=== PATIENT | male | born 1930 | race Caucasian/White ===

== ENCOUNTER 2017-01-27 07:43 | Day surgery (SDC) | payer MEDICARE, BC ==
--- NOTE | 2017-01-21 19:01 | HP ---
PREOPERATIVE HISTORY AND PHYSICAL: DATE OF SURGERY/ADMISSION: 01/27/17 AGE: 86. ATTENDING SURGEON: Hina Hartmann MD. PROCEDURE: Left wrist carpal tunnel release. DATE OF OFFICE VISIT/ENCOUNTER: 01/21/17 PRIMARY CARE PHYSICIAN: Dr. Macias. PRIMER ASSEMBLER: Dr. Redmond. CHIEF COMPLAINT: Numbness and tingling, left hand. HISTORY OF PRESENT ILLNESS: This is an 86-year-old male who complains of numbness and tingling in b ilateral hands, worst on the left than on the right. He is left- handed. He was diagnosed by his [facility] physician with a vitamin B12 deficiency and he has been taking medication for that but h e continues to have numbness and tingling in his hands. He had a nerve conduction study EMG done, w hich showed bilateral ulnar neuropathy and left carpal tunnel syndrome. He is really only bothered by the left carpal tunnel syndrome symptoms. He says that he gets numbness and tingling in the midd le and index fingers in the left hand and feels weakness in his hand and difficulty with fine motor movements. He is not complaining of symptoms in his small finger. After evaluation by and discussi on with Dr. Hartmann, he has elected to proceed with surgical intervention for his left carpal tunnel s yndrome. The patient is on Coumadin and we will plan on having him stay on Coumadin through the period. PAST MEDICAL HISTORY: 1. Stroke approximately 12 years ago. 2. Hypertension. 3. Hypercholesterolemia. 4. Hypothyroidism. 5. Atrial fibrillation. 6. Blind, right eye. PAST SURGICAL HISTORY: 1. Cholecystectomy. 2. Hernia repair. 3. Partial thyroidectomy. 4. Prostatectomy. 5. Bladder surgery. 6. Left ankle surgery. CURRENT MEDICATIONS: 1. Atorvastatin calcium 20 mg daily. 2. Cartia XT 240 mg daily. 3. Digoxin 125 mcg 1 tab Thursday, Thursday, Thursday. 4. Finasteride 5 mg daily. 5. Levothyroxine sodium 125 mcg daily. 6. Systane preservative free 1 drop daily for dry eyes. 7. Toprol-XL 25 mg daily. 8. Viagra 100 mg 1/2 to 1 tab daily p.r.n. 9. Vitamin B12 once every 30 days. 10. Vitamin D 1000 units 1 tablet daily. 11. Warfarin sodium 1 mg take as directed. ALLERGIES: LISINOPRIL, caused dry eye. FAMILY MEDICAL HISTORY: Stroke, his father at age 98 and cancer. His mother at age 80. SOCIAL HISTORY: The patient is retired. 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 He denies tobacco use, recreational drug use, and alcohol use. REVIEW OF SYSTEMS: General: Negative for fevers, chills, or night sweats. No known anesthesia pro blems. HEENT: Negative for headache, lightheadedness, or syncopal episodes. Integumentary: Negat mac for abrasions, lesions, or open wounds. Cardiothoracic: Positive for atrial fibrillation and h ypertension. Negative for chest pain. Pulmonary: Negative for shortness of breath with exertion, c hronic cough, or COPD. GI: Negative for nausea, vomiting, diarrhea, constipation, or GERD. : N egative for nocturia, urinary frequency, urgency, history of UTIs, or kidney problems. Musculoskele ira: Positive for current complaint. Otherwise negative. Neurological: Positive for history of s troke. Negative for history of seizure. Endocrine: Positive for hypothyroidism. Negative for diabe joslyn. Hematologic: Positive for easy bruising and bleeding secondary to Coumadin. Negative for his tory of DVT. Infectious Disease: Negative for history of MRSA, hepatitis C, or HIV. PHYSICAL EXAMINATION GENERAL: Well-developed, well-nourished 86-year-old male in no acute distress. HEENT: Normocephalic, atraumatic. The patient is blind in right eye. Left eye pupil is equal, rou nd, reactive to light and accommodation and extraocular movements are intact. NECK: Supple. No palpable lymph nodes. Throat is clear. PULMONARY: Lungs are clear to auscultation bilaterally. No wheezes, rales, or rhonchi. CARDIOVASCULAR: Regular rate and rhythm. S1, S2. No murmurs, rubs, or gallops. No edema. ABDOMEN: Positive bowel sounds. Nontender. NEUROLOGICAL: Alert and oriented x3. Cranial nerves II through XII intact. Sensation is intact to light touch. PERIPHERAL VASCULAR: 2+ radial and ulnar pulses. Negative Armin test. MUSCULOSKELETAL: On exam of his left hand, he has some mild thenar wasting and some weakness with t humb abduction. He has a positive Tinel sign over the median nerve on the left. Negative Tinel's a t the ulnar nerve. He has good motion in his fingers and sensation is intact to light touch in his small finger, but slightly decreased at the tip of the middle finger. IMPRESSION: Left carpal tunnel syndrome. PLAN: The patient is scheduled to undergo a left wrist carpal tunnel release with Dr. Hartmann on 01/12 02/28. He will return to the office 10 to 14 days postop for followup and suture removal. A prescri ption for Ultracet was e-scribed to the patient's pharmacy for postoperative pain management. We wi ll plan on having the patient stay on his regular Coumadin dosage perioperatively. ARY GUNN [id number]/[facility] #: [id number]
[~2017-01-27 07:43] MED LIST: Buffered Lidocaine 1% SYR 3ML* 3 ML/SYR SYRINGE INTRADERM ONE; Famotidine IV* 10 MG/ML 2 ML (20 mg) IV ONE
[2017-01-27] MEDS ORDERED: Famotidine IV* 10 MG/ML 2 ML (20 mg) ONE (07:50)
[2017-01-27] MEDS ORDERED: Lidocaine 1% INJ* 10 MG/ML 30 ML SDV ONE (07:52)
[2017-01-27] MEDS ORDERED: DiMENhydriNATE IV* 50 MG/ML VIAL IV PUSH PRN (08:26)
[2017-01-27] MEDS ORDERED: Acetaminophen TAB* 325 MG PO PRN (08:26)
[2017-01-27] MEDS ORDERED: Midazolam* 1 MG/ML 2 ML VIAL (2 MG) ONE (08:30)
[2017-01-27] MEDS ORDERED: fentaNYL* 50 MCG/ML 2 ML VIAL (100 MCG VIAL) ONE (08:30)
[2017-01-27] MEDS ORDERED: Ketorolac INJ* 30 MG/ML 1 ML VIAL ONE (09:02)
[2017-01-27] MEDS ORDERED: Propofol* 10 MG/ML 20 ML BTL IV PUSH ONE (09:02)
[2017-01-27] MEDS ORDERED: Lidocaine 2% PF * 5 ML VIAL ONE (09:02)
[2017-01-27 10:03] VITALS: BP 136/60
--- NOTE | 2017-01-27 21:53 | OP ---
DATE OF OPERATION: 01/27/17 [facility] DATE OF : 32 SURGEON: Hina Hartmann MD. LAP REGULATOR: ARY Culver. ANESTHESIOLOGIST: Zahraa Hernandez MD ANESTHESIA: Local MAC. PRE-OP DIAGNOSIS: Left carpal tunnel syndrome. POST-OP DIAGNOSIS: Left carpal tunnel syndrome. OPERATIVE PROCEDURE: Left carpal tunnel release. ESTIMATED BLOOD LOSS: Zero. TOURNIQUET TIME: About 8 minutes. INDICATIONS FOR PROCEDURE: is an 86-year-old man with numbness and tingling in the median nerve distribution of his left hand who presents for left carpal tunnel release. DESCRIPTION OF PROCEDURE: The patient was brought to the operating room, and was given a sedation anesthetic and a local infiltration with 10 cc of 1% plain lidocaine. The skin of his left hand and forearm was prepped and draped in the usual sterile fashion. The hand and forearm were exsanguinated and the tourniquet elevated to 250 mmHg. A longitudinal incision was made in the palm in line with the ring finger. We dissected through the subcutaneous tissue down to the transverse carpal ligament. The ligament was divided sharply with a knife and then more proximally with the scissors. The nerve was dissected free from the surrounding tissue and there was an area of moderate compression at the mid portion of the ligament. The wound was irrigated and the skin edges were reapproximated with 4-0 nylon sutures. The wound was dressed with Xeroform , 4x4, Webril, and an Yahir wrap. The patient tolerated the procedure well and was brought to the recovery room in good condition. [id number]/[facility] #: [id number] [facility]
== END 2017-01-27 10:15 | disposition home or self-care (01) ==
LOC: OREAST 07:43
PROVIDERS: ATTEND Orthopaedic Surgery
DX: G56.02 Carpal tunnel syndrome, left upper limb (principal); I48.91 Unspecified atrial fibrillation; Z79.01 Long term (current) use of anticoagulants; I10 Essential (primary) hypertension; E03.9 Hypothyroidism, unspecified; E78.00 Pure hypercholesterolemia, unspecified
CPT/HCPCS: J1885; J2001; J2250; J2704; J3010

== ENCOUNTER 2017-08-15 23:31 | Emergency (ER) | payer MEDICARE, BC ==
[2017-08-16 03:08] LABS: Hematocrit 45 % (42-52); Hemoglobin 14.8 g/dl (14.0-18.0); Mean Corpuscular HGB Conc 33 g/dl (31-36); Mean Corpuscular Hemoglobin 30 pg (27-31); Mean Corpuscular Volume 89 fL (80-94); Mean Platelet Volume 8 um3 (7.4-10.4); Red Blood Count 5.02 10^6/ul (4.0-5.4); Red Cell Distribution Width 15 % (10.5-15); White Blood Count 10.3 10^3/ul (3.5-10.8)
[2017-08-16 03:20] LABS: Albumin 4.1 g/dL (3.2-5.2); BUN/Creatinine Ratio 15.9 (8-20); Calcium 9.3 mg/dL (8.6-10.3); EGFR African American 114.6 (>60); EGFR Non-African American 89.1 (>60); Globulin 3.3 g/dL (2-4); Potassium 4.5 mmol/L (3.5-5.0); Total Bilirubin 0.7 mg/dL (0.2-1.0); Total Protein 7.4 g/dL (6.4-8.9)
[2017-08-16 05:43] LABS: Urine Bacteria Absent (Absent); Urine Bilirubin Negative (Negative); Urine Glucose Negative (Negative); Urine Nitrite Negative (Negative)
[2017-08-16] MEDS ORDERED: Cephalexin CAP* 500 MG PO ONE (06:05)
[2017-08-16 06:37] VITALS: BP 173/73
--- NOTE | 2017-08-18 08:33 | ED ---
Progress - Progress Note Progress Note: Pt's prelim urine cx reveals 50-75,000 e. coli. Pt started on kelfex. Sensitivities pending. No change at this time. Course/Dx - Diagnoses Provider Diagnoses: UTI (urinary tract infection)
== END 2017-08-16 06:49 | disposition home or self-care (01) ==
LOC: ED 23:31
DX: N39.0 Urinary tract infection, site not specified (principal)
CPT/HCPCS: 36415; 80053; 81003; 81015; 85025; 87077; 87086; 87186; 99282; A9270-GY

== ENCOUNTER 2017-08-28 09:03 | Day surgery (SDC) | payer MEDICARE, BC ==
--- NOTE | 2017-08-14 10:11 | HP ---
CC: Dr. Macias; Dr. Gavin Redmond * HISTORY AND PHYSICAL: DATE OF PLANNED ADMISSION AND SURGERY: 08/28/17 HISTORY OF PRESENT ILLNESS: Mr. Thornton is an 87-year-old white male, who is admitted with suspicious lesion in the right trigone for cystoscopy, transurethral resection of the bladder lesions, and placement of right ureteral stents. Mr. Thornton presented 6 years ago with recurrent episodes of gross hematuria and was noted on work-up to have a tumor in the right base of the bladder. He underwent transurethral resection and the pathology showed it to be a low-grade and non-invasive transitional cell carcinoma. 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 The patient was followed with periodic cystoscopies, and was noted to have a slight irregularity in the right trigone adjacent to the resection of the original tumor. On his recent cystoscopy, the appearance of the right trigone involving both ureteral orifices was suspicious of recurrence of a flat bladder tumor. Because of that finding, the patient is admitted for the above procedure. The patient denies any episodes of gross hematuria. He denies any significant obstructive voiding symptoms. He had a TURP for prostate enlargement and obstruction in 1989. PAST MEDICAL HISTORY AND SYSTEM REVIEW: He has atrial fibrillation and is maintained on anticoagulation with warfarin. He is on digoxin 0.125 mg 3 days a week, Cartia XT 240 mg daily, metoprolol 25 mg daily. He has hyperlipidemia, on Lipitor 20 mg daily. He has hypothyroidism, on levothyroxine 125 mcg daily. He is on vitamin D and on vitamin B12. He is on finasteride 5 mg daily for BPH. ALLERGIES: He denies any allergies to medications. SOCIAL HISTORY: He has adequate exercise tolerance. 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 PHYSICAL EXAMINATION GENERAL: A pleasant, elderly white male, who looks good for his age. VITAL SIGNS: Blood pressure 140/90, pulse of 80, irregular. LUNGS: Clear. HEART: Irregular. No murmurs. ABDOMEN: Soft, no masses, no tenderness, and no CVA tenderness. RECTAL: Shows a slightly enlarged, but nonsuspicious prostate. IMPRESSION: 1. History of transitional cell carcinoma of the urinary bladder with suspicious lesion involving the right trigone and right ureteral orifices. 2. 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 3. Atrial fibrillation on warfarin. 4. Hypertension and hyperlipidemia, on treatment. PLAN: For cystoscopy and transurethral resection of the bladder lesions with probable placement of right ureteral stents. The stents have to be placed in both ureters on the right side. The procedure can be performed without having to stop his warfarin if that will put him at a higher risk for embolic phenomena. I discussed the above plans in detail with the patient and all his questions were answered. [id number]/[facility] #: [id number] DEBBIE
[~2017-08-28 09:03] MED LIST changes: +Buffered Lidocaine 0.9% SYRIN* 5 ML/SYR SYRINGE INTRADERM ONE; -Buffered Lidocaine 1% SYR 3ML* 3 ML/SYR SYRINGE INTRADERM ONE; +Dexamethasone IV* 4 MG/ML 1 ML (4 MG) IV SLOW PU ONE; +Lidocaine 2% PF * 5 ML VIAL ONE; +Propofol* 10 MG/ML 20 ML BTL IV PUSH ONE
[2017-08-28] MEDS ORDERED: fentaNYL* 50 MCG/ML 2 ML VIAL (100 MCG VIAL) ONE (09:18)
[2017-08-28] MEDS ORDERED: Midazolam* 1 MG/ML 2 ML VIAL (2 MG) ONE (09:18)
[2017-08-28] MEDS ORDERED: Furosemide IV* 10 MG/ML 2 ML VIAL (20 MG) ONE (09:27)
[2017-08-28] MEDS ORDERED: Buffered Lidocaine 0.9% SYRIN* 5 ML/SYR SYRINGE ONE (09:39)
[2017-08-28] MEDS ORDERED: Famotidine IV* 10 MG/ML 2 ML (20 mg) ONE (09:39)
[2017-08-28] MEDS ORDERED: Dexamethasone IV* 4 MG/ML 1 ML (4 MG) ONE (09:39)
[2017-08-28] MEDS ORDERED: cefTRIAXone(*) 2 GM ADDV.VIAL IVPB ONE (09:39)
[2017-08-28] MEDS ORDERED: Iohexol 180 (CONTRAST) 10 ML SDV IV ONE (10:00)
[2017-08-28] MEDS ORDERED: Etomidate* 2 MG/ML 10 ML VIAL ONE (10:06)
[2017-08-28] MEDS ORDERED: oxyCODONE TAB* 5 MG TAB PO PRN (10:10)
[2017-08-28] MEDS ORDERED: oxyCODONE/Acetamin 5/325 MG* TAB PO PRN (10:10)
[2017-08-28] MEDS ORDERED: Acetaminophen TAB* 325 MG PO PRN (10:10)
[2017-08-28] MEDS ORDERED: Ondansetron INJ* 2 MG/ML VIAL IV PRN (10:10)
[2017-08-28] MEDS ORDERED: fentaNYL* 50 MCG/ML 2 ML VIAL (100 MCG VIAL) IV PRN (10:10)
[2017-08-28] MEDS ORDERED: HYDROmorphone INJ* 1 MG/ML CARPUJECT SYRINGE IV PRN (10:10)
[2017-08-28] MEDS ORDERED: Fluorescein 10% INJ* 100 MG/ML AMP ONE (11:10)
--- NOTE | 2017-08-28 13:18 | RAD ---
INDICATION: Right ureteral stent placement COMPARISON: None FINDINGS: 15 seconds of fluoroscopy were provided for the urology department. Fluoroscopic spot imaging of the abdomen were obtained for operative control and resulted in placement of 2 right-sided ureteral stents one in the upper pole moiety and one in the lower pole moiety in this patient with complete duplication.. CPT II Codes: 6045F (fluoro time doc)
[2017-08-28 16:55] VITALS: BP 177/86
--- NOTE | 2017-08-29 03:00 | OP ---
CC: Dr. Macias OPERATIVE REPORT: DATE OF OPERATION: 08/28/17 DATE OF : 32 SURGEON: Dr. Allen. ANESTHESIOLOGIST: Dr. Chio Stewart. ANESTHESIA: General. PRE-OP DIAGNOSES: 1. Complete duplication of right collecting system. 2. Tumor of right trigone. POST-OP DIAGNOSES: 1. Complete duplication of right collecting system. 2. Tumor of right trigone. OPERATIVE PROCEDURE: 1. Cystoscopy. 2. Retrograde pyelographies of both right ureters. 3. Placement of 2 right ureteral stents. 4. Transurethral resection of a tumor of right trigone (2 to 3 cm) INDICATIONS FOR PROCEDURE: Mr. Thornton is an 87-year-old white male who has past history of bladder tumor and who was noted on recent office cystoscopy to have a suspicious lesion occupying the right trigone. The lesion was flat with irregular mucosa. 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 Because of the above history and findings, the patient was admitted for the above procedure. PATHOLOGY: At cystoscopy, the penile and bulbar urethrae looked normal. The prostatic urethra showed changes of TURP with some regrowth of prostate tissue, but no significant obstruction. Examination of the bladder showed a single left ureteral orifice. There were 2 right ureteral orifices. There was irregularity of the mucosa of the right trigone involving both orifices. The irregularity of the mucosa was suspicious for flat transitional cell carcinoma. Retrograde pyelographies of both right ureters showed no abnormal filling defects. No hydronephrosis of either moieties was noted. DESCRIPTION OF PROCEDURE: After successful general anesthesia, the patient was placed in the lithotomy position and was prepped and draped for a cystoscopy. Cystoscopy was performed. The bladder was carefully inspected and the above findings were noted. The patient was given 0.5 cc of fluorescein for easier identification of the ureteral orifices. The medial orifice was first identified. It was intubated with a guidewire and retrograde pyelography was performed. As expected, it was draining the upper pole collecting system. Retrograde showed some extravasation of contrast from the collecting system. A 6-Peruvian stent was then placed with the proximal end coiling in the renal pelvis and the distal end coiling inside the bladder. Attention was directed to the lateral orifice. A flexible tip guidewire was introduced and followed by an open-ended catheter. Retrograde pyelography was performed demonstrating the lower pole moiety collecting system and the ureter. Again, there was some extravasation because the collecting system was not dilated. An open-ended catheter was positioned in the proximal ureter. The cystoscope was removed keeping the open-ended catheter in place. The resectoscope was then introduced inside the bladder alongside the open-ended catheter. The tumor was then resected down to muscle. There seemed to be some tumor growing into the distal ureter at the level of the orifice and that was thoroughly fulgurated. The resected tissue was evacuated and sent for pathology. Extensive fulguration was then performed controlling all the oozes. At the completion of the resection, there was no residual tumor seen. There was very good hemostasis. The resectoscope was then removed. A guidewire was then introduced through the open ended catheter and positioned in the area of the lower pole moiety renal pelvis. A cystoscope was then introduced inside the bladder over the guidewire. Retrograde pyelography was performed. A size 6-Peruvian stent was then placed with the proximal end coiling in the lower pole collecting system and the distal end coiling inside the bladder. Again, there was noted some extravasation from the upper and lower pole collecting systems. This cystoscope was removed. A size 18-Peruvian Escobedo catheter was passed inside the bladder and the balloon inflated with 10 cc of water. The patient tolerated the procedure well and left the operating room in good condition. Because of the extravasation noted from the collecting system, mitomycin-C would not be given in the PACU. The plan is to keep the stent in place for 3 weeks to allow the healing from the resection. [id number]/[facility] #: [id number] DEBBIE
== END 2017-08-28 16:55 | disposition home or self-care (01) ==
LOC: OR 09:03
PROVIDERS: ATTEND Urology
DX: N32.9 Bladder disorder, unspecified (principal); Z85.51 Personal history of malignant neoplasm of bladder; Q62.5 Duplication of ureter; I48.91 Unspecified atrial fibrillation; Z79.01 Long term (current) use of anticoagulants; I10 Essential (primary) hypertension; E78.5 Hyperlipidemia, unspecified; E03.9 Hypothyroidism, unspecified; E53.8 Deficiency of other specified B group vitamins
CPT/HCPCS: 74420; 88305; A9270-GY; C1876; J0696; J1100; J1940; J2250; J2704; J3010

== ENCOUNTER → 2019-03-02 09:44 | Day surgery (SDC) | payer MEDICARE, BC ==
[~2019-03-02 09:44] MED LIST changes: +Atorvastatin* 20 MG TAB PO SCH; -Buffered Lidocaine 0.9% SYRIN* 5 ML/SYR SYRINGE INTRADERM ONE; +CYANOCOBALAMIN 5000 MCG PO SCH; +Cholecalciferol TAB* 1000 UNITS PO SCH; -Dexamethasone IV* 4 MG/ML 1 ML (4 MG) IV SLOW PU ONE; +Diclofenac 1% GEL (NF) 100 GM TUBE TOPICAL SCH; +Diltiazem CD CAP* 180 MG PO SCH; -Famotidine IV* 10 MG/ML 2 ML (20 mg) IV ONE; +Finasteride TAB* 5 MG PO SCH; +Heparin 2 UNITS/ML IVPREMIX* 3,000 UNIT/1,500 ML BAG IV ONE; +Heparin(*) 1000 UNIT/ML 10 ML VIAL CATH LAB IV ONE; +IRBESARTAN PO SCH; +Iohexol 350 (CONTRAST) 200 ML MDV IV ONE; +Levothyroxine TAB* 125 MCG TAB PO SCH; +Lidocaine 1% INJ* 10 MG/ML 30 ML SDV ONE; -Lidocaine 2% PF * 5 ML VIAL ONE; +METRONIDAZOLE 0.75% TOPICAL PRN; +Metoprolol Succinate XL TAB* 25 MG PO SCH; +Midazolam* 1 MG/ML 5 ML VIAL (5 MG) ONE; +NS 0.9% 1000 ML** 1,000 ML IV SCH; +Nitroglycerin 0.3 MG/HR PATCH* (7.5 MG) TRANSDERM SCH; +PEG OPHTHALMIC PRN; +PROPYLENE GLYCOL OPHTHALMIC PRN; -Propofol* 10 MG/ML 20 ML BTL IV PUSH ONE; +VERAPAMIL 2.5 MG/ML 2 ML VIAL ** 5 mg/2 ml ONE; +VITAMIN B12 IM SCH; +Warfarin TAB(*) 1 MG PO SCH; +[UNRECOGNIZED DRUG - OTHER] BOTH EYES PRN; +[UNRECOGNIZED DRUG - OTHER] OPHTHALMIC PRN; +fentaNYL* 50 MCG/ML 2 ML VIAL (100 MCG VIAL) ONE; +nitroGLYCERIN DRIP* 25,000 MCG/250 ML BTL ONE
[2019-03-02 10:42] LABS: INR 1.16 (0.82-1.09)
[2019-03-02 17:25] VITALS: BP 165/81
--- NOTE | 2019-03-02 17:43 | CATH ---
CC: Sugar Macias MD; Dr. Gavin Redmond * CARDIAC CATHETERIZATION REPORT: DATE OF PROCEDURE: 03/02/19 - [facility] CATH INDICATION FOR PROCEDURE: Asked by Dr. Gavin Redmond to perform diagnostic coronary arteriography to rule out significant coronary artery disease in light of patient's complaints of dyspnea on exertion with a history of an abnormal stress echo raising a question of mid to distal anterior wall ischemia with a history of atrial fibrillation. CONSENT: The patient was interviewed and examined in the holding area where the risks and benefits were explained. He understood and wished to proceed. APPROACH UTILIZED: The right radial artery was assessed in the holding area for size and found to be acceptable and initially this was the approach utilized. Because of more tortuosity in the right subclavian area, this approach was aborted and the right femoral artery using an anterior wall only cannulation was utilized for the study. PROCEDURE: Coronary arteriography, left heart catheterization, left ventriculography. EQUIPMENT UTILIZED: 1. Right radial artery sheath - a 6-Ghanaian Glidesheath slender. 2. Diagnostic guidewires used to attempt radial artery approach - a 260 length Vo curved wire and a 145 cm length Wholey wire. For the femoral artery approach - a 170 cm length J-tipped wire was utilized. 3. Diagnostic coronary catheters - a 5-Ghanaian FL4 curve and 5-Ghanaian FR4 curve diagnostic catheters from femoral artery approach. 4. Left heart catheterization catheter - 5-Ghanaian 145-degree angled pigtail catheter. 5. Closure devices utilized - a 5-Ghanaian Mynx closure device was utilized for the right femoral area and a regular size Vasc Band by [employer] was utilized for the right radial artery sheath. 6. Right femoral artery sheath was a 5-Ghanaian 11-cm Essie sheath. PRECARDIAC CATHETERIZATION LABORATORY RESULTS: Hemoglobin and hematocrit of 14.8 and 45 with a platelet count of 269,000. BUN and creatinine of 13 and 0.73. Sodium 140, potassium 4.7, chloride 104, bicarb 30. INR was 1.16 ( Coumadin had been held, his Coumadin last dose was last Thursday). MEDICATIONS GIVEN DURING THE PROCEDURE: The patient received a radial artery cocktail including 3000 units of heparin, 300 mcg of nitroglycerin, and 3 mg of verapamil. An additional 1000 units of heparin was given intravenously for the right radial artery attempt. A 1% lidocaine was utilized as well. DESCRIPTION OF PROCEDURE: The patient was brought to the cardiovascular laboratory and a formal time-out was performed. He was prepped and draped in sterile fashion and under ultrasound guidance, the right radial artery was cannulated and the sheath was placed. Attempts were made to traverse across the subclavian area which had marked tortuosity using both the Vo extension length wire and the Wholey wire. These were unsuccessful and as such, the right radial artery approach was aborted and the femoral artery approach was then utilized. Of note, the patient had received the radial artery cocktail and the IV heparin for the radial artery approach prior to switching to the groin. The patient was already prepped and draped in sterile fashion. The right groin area was anesthetized with 1% lidocaine. The right femoral artery was cannulated utilizing an anterior wall only approach and the sheath was placed. Coronary arteriography was then performed followed by left heart catheterization and left ventriculography utilizing a total of 28 cc of Omnipaque dye at a rate of 14 cc per second. The catheter was then pulled back across the aortic valve to recheck gradient. At the end of the case, the right radial artery sheath was removed and hemostasis was obtained with a Vasc Band and the right femoral artery sheath was removed and hemostasis was obtained with the 5-Ghanaian Mynx closure device. RESULTS: HEMODYNAMIC DATA: Left heart catheterization - central aortic pressure recorded a 147/63 with a mean of 99, left ventricular pressure 151 over left ventricular end- diastolic pressure of 15. LEFT VENTRICULOGRAPHY: Performed in the BUSCH projection revealed symmetrical contraction of the left ventricle. There was no focal wall motion abnormality. The overall ejection fraction was low normal range of 50% to 55%. The suggestive finding is of mild mitral regurgitation noted. CORONARY ARTERIOGRAPHY: A. Left coronary artery: 1. Left main - widely patent with mild calcium in its distal portion with minimal luminal reduction (less than 10%). 2. Left anterior descending artery - the left anterior descending artery had minimal calcification at its origin, it supplied a moderate bifurcating first diagonal branch and continued supplying smaller caliber diagonal branches and traversing to the apical region and slightly on to the distal inferior wall. The mid portion of the LAD just after the first diagonal had mild narrowing of 30%. The rest of the artery had no significant disease as well. The diagonal branch had mild ostial narrowing of 20% with a mild 25% mid segment noted. 3. Circumflex artery - a codominant vessel supplying a very high first obtuse marginal branch followed by a thin second, third and fourth obtuse marginal branch with a low lying moderate sized obtuse marginal branch before turned on to the inferior surface of the heart supplying a low lying posterior LV branch, followed by 2 small caliber distal low lying posterior left ventricular branches. There was trivial luminal irregularity seen throughout the circumflex system. There was 25% narrowing of the ostium of the left anterior descending artery. B. Right coronary artery - a dominant vessel supplying the PDA without any significant posterior left ventricular branches. Of note, the ostium appeared to have a 35% narrowing noted in its worst view. There was no other lesion seen throughout the course of the vessel. It supplied several acute marginal branches before turning on to the inferior surface of the heart with a thin small caliber acute marginal branch after turning on to the inferior surface before proceeding to the posterior descending artery. Of note, calcium was noted in the ostial area within the right coronary artery cusp. OVERALL ASSESSMENT: Low normal left ventricular systolic function with no definitive focal wall motion abnormality with mild coronary artery disease as described above. Continued ongoing medical management will be pursued. This information was shared with Dr. Gavin Redmond, the patient's primary strainer tender. [id number]/[facility] #: [id number] DEBBIE
== END | disposition home or self-care (01) ==
LOC: CHICATH 09:44
PROVIDERS: ATTEND Internal Medicine Cardiovascular Disease
DX: I48.2 Chronic atrial fibrillation (principal); I25.10 Atherosclerotic heart disease of native coronary artery without angina pectoris; I34.0 Nonrheumatic mitral (valve) insufficiency; R06.02 Shortness of breath; I10 Essential (primary) hypertension; R13.10 Dysphagia, unspecified; E53.8 Deficiency of other specified B group vitamins; E78.00 Pure hypercholesterolemia, unspecified; E03.9 Hypothyroidism, unspecified; Z86.73 Personal history of transient ischemic attack (TIA), and cerebral infarction without residual deficits; Z88.8 Allergy status to other drugs, medicaments and biological substances
CPT/HCPCS: 36415; 76937; 85347; 85610; 93458; C1887; J1644; J2250; J3010